=== PATIENT | male | born 1985 | race Caucasian/White ===

== ENCOUNTER 2018-01-23 20:01 | Emergency (ER) | payer OTHER ==
[2018-01-23 20:12] VITALS: BP 140/83; PULSE 97; RESP 20; TEMP 99; O2SAT 96
--- NOTE | 2018-01-23 21:33 | C.PDOC ---
History Of Present Illness 33 yo male w/o PMHx come in for evaluation of fever, chills, " some sore throat " gradually developed since yesterday. Otherwise, pt denies lethargy, severe headache, neck pain, rash, drooling, cough, SOB, dyspnea, wheezing, abd. pain, V /D, back pain, UTi sx. Ambulate to ED for evaluation, not in any apparent distress, appears comfortable. HPI: Influenza Time Seen by Provider: 01/23/18 20:49 Chief Complaint: Flu-like Symptoms History Per: Patient Onset/Duration Of Symptoms: Hrs (24) Past Medical History Reviewed: Historical Data, Nursing Documentation, Vital Signs Vital Signs: Last Vital Signs Temp 99 F 01/23/18 20:07 Pulse 97 H 01/23/18 20:07 Resp 20 01/23/18 20:07 BP 140/83 01/23/18 20:07 Pulse Ox 96 01/23/18 20:07 - Medical History PMH: Kidney Stones Family History: States: No Known Family Hx - Social History Hx Tobacco Use: No Hx Alcohol Use: Yes Hx Substance Use: No - Immunization History Hx Tetanus Toxoid Vaccination: No Hx Influenza Vaccination: No Hx Pneumococcal Vaccination: No Review Of Systems Except As Marked, All Systems Reviewed And Found Negative. Constitutional: Positive for: Fever, Chills, Malaise ENT: Positive for: Nose Congestion, Throat Pain, Throat Swelling. Negative for : Ear Pain, Ear Discharge, Nose Discharge Cardiovascular: Negative for: Chest Pain Respiratory: Negative for: Cough, Shortness of Breath, Wheezing Gastrointestinal: Negative for: Nausea, Vomiting, Abdominal Pain, Diarrhea Genitourinary: Negative for: Dysuria Musculoskeletal: Negative for: Neck Pain, Back Pain Skin: Negative for: Rash Neurological: Negative for: Seizures, Altered Mental Status, Headache, Dizziness Physical Exam - Physical Exam Appears: Well, Non-toxic, No Acute Distress Skin: Normal Color, Warm, Dry, No Rash Head: Normacephalic Eye(s): bilateral: PERRL Ear(s): Bilateral: Normal Nose: No Flaring, Discharge (scant clear B/l) Oral Mucosa: Moist, No Drooling Tongue: Normal Appearing Lips: Normal Appearing Throat: Erythema (mild b/l), No Drooling Neck: Trachea Midline, Supple, Other ((-) meningeal sign) Cardiovascular: Rhythm Regular, No Murmur Respiratory: No Decreased Breath Sounds, No Accessory Muscle Use, No Stridor, No Wheezing Gastrointestinal/Abdominal: Soft, No Tenderness, No Distention, No Guarding Extremity: Normal ROM, No Deformity, No Swelling Neurological/Psych: Oriented x3, Normal Speech - ECG O2 Sat by Pulse Oximetry: 96 Pulse Ox Interpretation: Normal - Progress ED Course And Treament: On re-eval, pt is awake, comfortable, not in resp. distress. Afebrile, hemodynamicaly stable. Non-toxic. Pt reports, mod improvement in sx after ED tx. Tolerate Po well in ED. PulsEOx 96% RA ENT: mild pharyngeal erythema B/L. uvula midline, no edema. neck: Supple, (-) meningeal sign, (-) carotid bruits, (-) JVD Lungs: CTA B/L, BS equal B/L. Abd: benign, (-) guarding, (-) rebound. Neuorlogicaly intact. Rapid strep (-) Pt has clinical findings c/w Influenza-like illness Pt advised on course of ds. ref. to f/u with Ped In 1-2 days for re-eavl. Return to ED at any time if any worsening or new changes. Disposition Counseled Patient/Family Regarding: Studies Performed, Diagnosis, Need For Followup, Rx Given - Disposition Referrals: [facility] [Outside] Disposition: HOME/ ROUTINE Disposition Time: 21:32 Condition: STABLE Additional Instructions: Encourage fluids Give medication as prescribed follow up with PMD in 2-3 days for re-evaluation. Return to ED if any worsening or new changes. Prescriptions: Ibuprofen [Motrin Tab] 400 mg PO Q6 #14 tab Oseltamivir Phosphate [Tamiflu] 75 mg PO BID #10 capsule Instructions: Flu, Adult (DC) - Clinical Impression Clinical Impression: Influenza-like illness
== END 2018-01-23 21:44 | disposition home or self-care (01) ==
LOC: C.ER 20:01
DX: J11.1 Influenza due to unidentified influenza virus with other respiratory manifestations (principal)